=== PATIENT | male | born 2000 | race Caucasian/White ===

== ENCOUNTER 2019-04-02 11:52 | Inpatient (IN) | payer BC ==
[~2019-04-02] VITALS: Ht 170.2 cm; Wt 69.8 kg
[2019-04-02] MEDS ORDERED: ZOLO50TA PO (11:58)
[2019-04-02] MEDS ORDERED: HYDR-3713 PO (11:58)
[2019-04-02 12:26] LABS: BASO % 0.1 % (0.0-1.0); EOS % 0.5 % (0.0-3.0); HEMATOCRIT 49.4 % (42.0-52.0); LYMPH # 0.9 10^3/uL (1.5-5.0); LYMPH % 10.2 % (24.0-44.0); MEAN CORPUSCULAR HEMOGLOBIN 30.1 pg (27.0-33.0); MEAN CORPUSCULAR HGB CONC 34.4 g/dl (32.0-36.5); MEAN CORPUSCULAR VOLUME 87.4 fl (80.0-96.0); MONO # 0.4 10^3/uL (0.0-0.8); MONO % 4.9 % (0.0-5.0); NEUTROPHILS # 7.4 10^3/uL (1.5-8.5); NEUTROPHILS % 84.1 % (36.0-66.0); PLATELET COUNT, AUTOMATED 209 10^3/uL (150-450); RED BLOOD COUNT 5.65 10^6/uL (4.30-6.10); WHITE BLOOD COUNT 8.7 10^3/uL (4.0-10.0)
[2019-04-02 13:00] LABS: ALBUMIN 4.4 GM/DL (3.2-5.2); ALT/SGPT 19 U/L (12-78); BILIRUBIN,DIRECT 0.4 MG/DL (0.0-0.2); BILIRUBIN,TOTAL 1.9 MG/DL (0.2-1.0); BLOOD UREA NITROGEN 6 MG/DL (7-18); CALCIUM LEVEL 9.2 MG/DL (8.5-10.1); CARBON DIOXIDE LEVEL 28 MEQ/L (21-32); CHLORIDE LEVEL 101 MEQ/L (98-107); CREATININE FOR GFR 0.88 MG/DL (0.70-1.30); GLUCOSE, FASTING 92 MG/DL (70-100); LIPASE 12824 U/L (73-393); POTASSIUM SERUM 3.7 MEQ/L (3.5-5.1); SODIUM LEVEL 138 MEQ/L (136-145); TOTAL PROTEIN 7.5 GM/DL (6.4-8.2)
[2019-04-02] MEDS ORDERED: HYDROMORPHONE HCL 0.5 MG/ 0.5 ML SYRINGE (J1170 PER 1) IV ONE ×2 (13:30→15:00)
[2019-04-02] MEDS ORDERED: ONDANSETRON 4MG/2ML VIAL (J2405) IV ONE (13:30)
[2019-04-02] MEDS ORDERED: NS 1,000 ML IV ONE ×2 (13:30→14:45)
[2019-04-02] MEDS ORDERED: ISOVUE-370 76% 100ML VIAL (Q9967) As Ordered ONE (13:48)
--- NOTE | 2019-04-02 14:18 | REP ---
Clinical: Abdominal pain. Pancreatitis. Technique: Axial contrast enhanced images from the lung bases to the pubic symphysis with coronal and sagittal re-formations using 100 ml Isovue 370 intravenous contrast material. Findings: The pancreas is edematous with surrounding peripancreatic inflammatory changes and moderate amount of ascites extending into the pelvis. No evidence for pancreatic necrosis or ischemia. No discrete drainable collection or abscess. Liver, spleen, gallbladder, bilateral adrenal glands and kidneys are normal. The enteric system is without obstruction or acute inflammatory process. Pelvis demonstrates normal bladder and age appropriate prostate/seminal vesicles. No free air. No significant adenopathy. Impression: Acute pancreatitis. Electronically Signed by Priyank Underwood MD 04/02/2019 02:09 P
[2019-04-02 15:00] LABS: AMYLASE 1100 U/L (25-115)
[2019-04-02] MEDS ORDERED: ONDANSETRON 4MG/2ML VIAL (J2405) IV PRN (15:45)
--- NOTE | 2019-04-02 16:15 | HPEPDOC ---
General Date of Admission Apr 02, 2019 at 15:09 Date of Service: Apr 02, 2019 Attending Physician: GERALDO DOMÍNGUEZ MD Chief Complaint The patient is a 18-year-old male admitted with a reason for visit of Acute Pancreatitis. Source: Patient, Family Exam Limitations: No limitations Associated Symptoms: Loss of appetite, Nausea History of Present Illness Mr Mac is a 18 year old male who presented to the ED for abdominal pain and pancreatitis. The patient was seen laying in bed with his father present. Mr. Mac has a history of anxiety for which he started Zoloft ~ 6 months ago and a history of pancreatitis with the first bout occurring 2-3 months prior. Mr. Mac denied any current prescribed or OTC medications. He currently drinks '1 or 2' beers at night after work and on Friday, he reported partying for his friends birthday. He stated the amount he drank, 'really wasn't that much.' Mr. Mac stated that he travels for work; he was in [place] at the [facility] 2 days prior due to an attack of pancreatitis. He was given Dilaudid IV which helped and released with Remlap PO. He reported he believes the Remlap worsened his pain. He has been 'drinking soups' for the past 2 days and denied having any alcohol since Friday. He reported the pain is terrible, substernal, 15/10 at its worst and has been pretty constant over 2 days. Patient denied vomiting, but he has felt nauseous since his latest bout. Dilaudid IV given in the ED has provided adequate pain relief. Home Medications Scheduled Sertraline Hcl (Zoloft) 50 Mg Tablet, 50 MG PO DAILY, (Reported) NOON Scheduled PRN Hydrocodone/Acetaminophen (Hydrocodone-Acetamin 5-325 mg) 1 Each Tablet, 1 TAB PO Q6H PRN for pain, (Reported) Allergies Coded Allergies: amoxicillin (Verified Allergy, Unknown, 04/02/19) anaphylaxis clavulanic acid (Verified Allergy, Unknown, 04/02/19) anaphylaxis Social History * Smoker: Denies Alcohol: other (1-2 beers after work ) Drugs: denies Recent Travel/Sick Contacts: Reports: Recent travel, Recent sick contacts Psychosocial History: No pertinent psych hx A-FIB/CHADSVASC A-FIB History Current/History of A-Fib/PAF?: No Review of Systems Eyes: Denies: Pain, Vision change ENT: Denies: Head Aches, Dysphagia Skin: Denies: Rash, Lesions Pulmonary: Denies: Dyspnea, Cough Cardiovascular: Denies: Chest Pain, Palpitations, Lt Headedness Gastrointestinal: Reports: Nausea, Abdominal Pain; Denies: Vomiting, Diarrhea, Constipation Genitourinary: Denies: Dysuria Hematologic: Denies: Bruising Musculoskeletal: Denies: Neck Pain, Back Pain, Shoulder Pain, Arm Pain, Hand Pain, Leg Pain, Foot Pain, Joint Pain, Muscle Pain, Spasms, Other Symptoms Psych: Reports: Mood Normal Physical Examination General Exam: Positive: Alert, Cooperative, No Acute Distress Eye Exam: Positive: Conjunctiva & lids normal ENT Exam: Positive: Atraumatic, Mucous membr. moist/pink Neck Exam: Positive: Supple Chest Exam: Positive: Clear to auscultation, Normal air movement Heart Exam: Positive: Rate Normal, Normal S1, Normal S2; Negative: Murmurs, Rubs Abdomen Exam: Positive: Normal bowel sounds, Soft, Tenderness (Depp palpation produces pressure, does not reproduce the pain); Negative: Hepatospenomegaly, Mass Extremity Exam: Negative: Clubbing, Cyanosis, Edema Skin Exam: Positive: Nl turgor and temperature Neuro Exam: Positive: Normal Speech Psych Exam: Positive: Mood NL Vital Signs Vital Signs Date Time Temp Pulse Resp B/P (MAP) Pulse Ox O2 Delivery O2 Flow Rate FiO2 04/02/19 15:38 18 Room Air 04/02/19 12:05 Automatic Cuff (NIBP) Left Arm 04/02/19 11:53 97.5 54 96 Laboratory Data Labs 24H Laboratory Tests 2 04/02/19 12:00: Immature Granulocyte % (Auto) 0.2, Neutrophils (%) (Auto) 84.1H, Lymphocytes (%) (Auto) 10.2L, Monocytes (%) (Auto) 4.9, Eosinophils (%) (Auto) 0.5, Basophils (%) (Auto) 0.1, Neutrophils # (Auto) 7.4, Lymphocytes # (Auto) 0.9L, Monocytes # (Auto) 0.4, Eosinophils # (Auto) 0.0, Basophils # (Auto) 0.0, Nucleated Red Blood Cells % (auto) 0.0, Anion Gap 9, Calcium Level 9.2, Total Bilirubin 1.9H, Direct Bilirubin 0.4H, Aspartate Amino Transf (AST/SGOT) 14, Alanine Aminotransferase (ALT/SGPT) 19, Alkaline Phosphatase 83, Total Protein 7.5, Albumin 4.4, Albumin/Globulin Ratio 1.42, Amylase Level 1100H, Lipase 35247I 04/02/19 12:21: Urine Color YELLOW, Urine Appearance CLEAR, Urine pH 7.0, Urine Specific [place] 1.009, Urine Protein NEGATIVE, Urine Glucose (UA) NEGATIVE, Urine Ketones 1+H, Urine Blood NEGATIVE, Urine Nitrite NEGATIVE, Urine Bilirubin NEGATIVE, Urine Urobilinogen 0.2, Urine Leukocyte Esterase NEGATIVE, Urine WBC (Auto) 0, Urine RBC (Auto) 0, Urine Hyaline Casts (Auto) 0, Urine Bacteria (Auto) NEGATIVE, Urine Squamous Epithelial Cells 0, Urine Mucus (Auto) SMALL, Urine Sperm (Auto) CBC/BMP Laboratory Tests 04/02/19 12:00 Assessment/Plan 18 year old male presented to the ED for abdominal pain for 1 day adn found to have elevated amylase and lipase. Patient had a CT of the abdomen which showed acute pancreatitis without necrosis Acute pancreatitis second episode this year. Patient will be admitted due to acute pancreatitis with significant pain and elevated Lipase. NPO, Dialudid 0.5mg IV q3hp (mild pain) and 0.8mg q3hp (severe pain) for pain relief, Ondonsetron 4mg IV q6hp prn, and Pantoprazole 40mg IV q24hr. aggressive hydration. Repeat CMP qam daily to monitor resolution of the current pancreatitis. History of significant alcohol use counselled about stopping drinking. Patient will be admitted to the hospital and expect greater than 48 hours inpatient stay. Plan / VTE VTE Prophylaxis Ordered?: Yes YULY RIVERA PA-C Apr 02, 2019 16:15 GERALDO DOMÍNGUEZ MD Apr 02, 2019 17:21
[2019-04-02] MEDS: LR 1,000 ML IV SCH ×2 (16:26→22:38)
[2019-04-02 16:36] VITALS: BP 146/72
[2019-04-02] MEDS: PANTOPRAZOLE 40MG INJ (PROTONIX) (C9113) IV SCH (17:16)
[2019-04-02] MEDS: HYDROMORPHONE HCL 0.5 MG/ 0.5 ML SYRINGE (J1170 PER 1) IV PRN (21:37)
[2019-04-02 22:00] VITALS: BP 139/69
[2019-04-03] MEDS: HYDROMORPHONE HCL 0.5 MG/ 0.5 ML SYRINGE (J1170 PER 1) IV PRN ×4 (03:32→20:09)
[2019-04-03] MEDS: LR 1,000 ML IV SCH ×3 (05:25→20:08)
[2019-04-03 05:54] LABS: BASO % 0.1 % (0.0-1.0); EOS # 0.1 10^3/uL (0.0-0.5); EOS % 1.3 % (0.0-3.0); HEMATOCRIT 43.8 % (42.0-52.0); LYMPH # 1.3 10^3/uL (1.5-5.0); LYMPH % 15.4 % (24.0-44.0); MEAN CORPUSCULAR HEMOGLOBIN 29.9 pg (27.0-33.0); MEAN CORPUSCULAR HGB CONC 33.6 g/dl (32.0-36.5); MEAN CORPUSCULAR VOLUME 89.2 fl (80.0-96.0); MONO # 0.5 10^3/uL (0.0-0.8); MONO % 6.2 % (0.0-5.0); NEUTROPHILS # 6.5 10^3/uL (1.5-8.5); NEUTROPHILS % 76.6 % (36.0-66.0); PLATELET COUNT, AUTOMATED 193 10^3/uL (150-450); RED BLOOD COUNT 4.91 10^6/uL (4.30-6.10); WHITE BLOOD COUNT 8.4 10^3/uL (4.0-10.0)
[2019-04-03 05:55] LABS: HEMOGLOBIN 14.7 g/dl (13.5-17.5)
[2019-04-03 06:00] VITALS: BP 125/61
[2019-04-03 06:16] LABS: AMYLASE 653 U/L (25-115); BLOOD UREA NITROGEN 6 MG/DL (7-18); CALCIUM LEVEL 8.3 MG/DL (8.5-10.1); CARBON DIOXIDE LEVEL 28 MEQ/L (21-32); CHLORIDE LEVEL 103 MEQ/L (98-107); CREATININE FOR GFR 0.72 MG/DL (0.70-1.30); GLUCOSE, FASTING 73 MG/DL (70-100); LIPASE 4433 U/L (73-393); POTASSIUM SERUM 3.9 MEQ/L (3.5-5.1); SODIUM LEVEL 139 MEQ/L (136-145)
--- NOTE | 2019-04-03 13:08 | IPNPDOC ---
Subjective Date Seen The patient was seen on 04/03/19. Subjective Chief Complaint/HPI Says sia abdominal pain is still bad but no nausea or vomiting. Says he is starting to feel hungry . No fever or chills, no chest pain or sob . No bowel movement but did pass some flatus. Objective Physical Examination General Exam: Positive: Alert, Cooperative, No Acute Distress Eye Exam: Positive: Conjunctiva & lids normal ENT Exam: Positive: Atraumatic, Mucous membr. moist/pink Neck Exam: Positive: Supple Chest Exam: Positive: Clear to auscultation, Normal air movement Heart Exam: Positive: Rate Normal, Normal S1, Normal S2; Negative: Murmurs, Rubs Abdomen Exam: Positive: Normal bowel sounds, Soft, Tenderness (diffuse in the epigastrium and periumbilical on deep palpation. ); Negative: Hepatospenomegaly, Mass Extremity Exam: Negative: Clubbing, Cyanosis, Edema Skin Exam: Positive: Nl turgor and temperature Neuro Exam: Positive: Normal Speech Psych Exam: Positive: Mood NL Assessment /Plan Assessment 18 year old male presented to the ED for abdominal pain for 1 day and found to have elevated amylase and lipase. Patient had a CT of the abdomen which showed acute pancreatitis without necrosis Acute pancreatitis second episode this year. Patient will be admitted due to acute pancreatitis with significant pain and elevated Lipase. will start clear liquids. Dialudid 0.5mg IV q3hp (mild pain) and 0.8mg q3hp (severe pain) for pain relief, Ondonsetron 4mg IV q6hp prn, and Pantoprazole 40mg IV q24hr. aggressive hydration. Repeat CMP qam daily to monitor resolution of the current pancreatitis. lipase improving. History of significant alcohol use counselled about stopping drinking. VS, I&O, 24H, Fishbone Vital Signs/I&O Vital Signs Date Time Temp Pulse Resp B/P (MAP) Pulse Ox O2 Delivery O2 Flow Rate FiO2 04/03/19 10:14 18 04/03/19 06:00 98.7 66 125/61 (82) 97 Room Air I&O- Last 24 Hours up to 6 AM 04/03/19 06:00 Intake Total 4280 ml Output Total 300 ml Balance 3980 ml Laboratory Data 24H LABS Laboratory Tests 2 04/03/19 05:35: Immature Granulocyte % (Auto) 0.4, Neutrophils (%) (Auto) 76.6H, Lymphocytes (%) (Auto) 15.4L, Monocytes (%) (Auto) 6.2H, Eosinophils (%) (Auto) 1.3, Basophils (%) (Auto) 0.1, Neutrophils # (Auto) 6.5, Lymphocytes # (Auto) 1.3L, Monocytes # (Auto) 0.5, Eosinophils # (Auto) 0.1, Basophils # (Auto) 0.0, Nucleated Red Blood Cells % (auto) 0.0, Anion Gap 8, Calcium Level 8.3L, Amylase Level 653H, Lipase 4433H CBC/BMP Laboratory Tests 04/03/19 05:35 GERALDO DOMÍNGUEZ MD Apr 03, 2019 13:07
[2019-04-03 18:00] VITALS: BP 127/63
[2019-04-03] MEDS: PANTOPRAZOLE 40MG INJ (PROTONIX) (C9113) IV SCH (18:20)
[2019-04-03 22:00] VITALS: BP 127/64
[2019-04-04] MEDS: LR 1,000 ML IV SCH ×3 (02:52→16:09)
[2019-04-04] MEDS: HYDROMORPHONE HCL 0.5 MG/ 0.5 ML SYRINGE (J1170 PER 1) IV PRN (02:52)
[2019-04-04 06:00] VITALS: BP 124/61
[2019-04-04 06:31] LABS: BASO % 0.3 % (0.0-1.0); EOS # 0.2 10^3/uL (0.0-0.5); HEMATOCRIT 43.8 % (42.0-52.0); HEMOGLOBIN 14.4 g/dl (13.5-17.5); LYMPH # 1.3 10^3/uL (1.5-5.0); MEAN CORPUSCULAR HEMOGLOBIN 29.5 pg (27.0-33.0); MEAN CORPUSCULAR HGB CONC 32.9 g/dl (32.0-36.5); MEAN CORPUSCULAR VOLUME 89.8 fl (80.0-96.0); MONO # 0.5 10^3/uL (0.0-0.8); MONO % 8.7 % (0.0-5.0); NEUTROPHILS # 3.9 10^3/uL (1.5-8.5); NEUTROPHILS % 64.7 % (36.0-66.0); PLATELET COUNT, AUTOMATED 194 10^3/uL (150-450); RED BLOOD COUNT 4.88 10^6/uL (4.30-6.10)
[2019-04-04 06:51] LABS: BLOOD UREA NITROGEN 4 MG/DL (7-18); CARBON DIOXIDE LEVEL 32 MEQ/L (21-32); CHLORIDE LEVEL 101 MEQ/L (98-107); CREATININE FOR GFR 0.84 MG/DL (0.70-1.30); GLUCOSE, FASTING 87 MG/DL (70-100); POTASSIUM SERUM 3.6 MEQ/L (3.5-5.1); SODIUM LEVEL 139 MEQ/L (136-145)
[2019-04-04 08:24] LABS: AMYLASE 245 U/L (25-115); LIPASE 1461 U/L (73-393)
[2019-04-04] MEDS ORDERED: NORCO, ANEXSIA 5/325MG TABLET (HYDROcodone/ACETAMINOPHEN) PO PRN ×2 (11:00)
--- NOTE | 2019-04-04 11:01 | IPNPDOC ---
Subjective Date Seen The patient was seen on 04/04/19. Subjective Chief Complaint/HPI Still not hungry, Had asmall bowel movement yesterday. says passing flatus. No fever or chills. Abdominal pain slightly bettr still need a dilaudid at 3 am. Objective Physical Examination General Exam: Positive: Alert, Cooperative, No Acute Distress Eye Exam: Positive: Conjunctiva & lids normal ENT Exam: Positive: Atraumatic, Mucous membr. moist/pink Neck Exam: Positive: Supple Chest Exam: Positive: Clear to auscultation, Normal air movement Heart Exam: Positive: Rate Normal, Normal S1, Normal S2; Negative: Murmurs, Rubs Abdomen Exam: Positive: Normal bowel sounds, Soft, Tenderness (diffuse in the epigastrium and periumbilical on deep palpation. ); Negative: Hepatospenomegaly, Mass Extremity Exam: Negative: Clubbing, Cyanosis, Edema Skin Exam: Positive: Nl turgor and temperature Neuro Exam: Positive: Normal Speech Psych Exam: Positive: Mood NL Assessment /Plan Assessment 18 year old male presented to the ED for abdominal pain for 1 day and found to have elevated amylase and lipase. Patient had a CT of the abdomen which showed acute pancreatitis without necrosis Acute pancreatitis recurrent , second episode. improving slowly. advance diet to full liquids. decrease IVF will start on PO pain meds and cut down on IV dilaudid. History of significant alcohol use counselled about stopping drinking. VS, I&O, 24H, Fishbone Vital Signs/I&O Vital Signs Date Time Temp Pulse Resp B/P (MAP) Pulse Ox O2 Delivery O2 Flow Rate FiO2 04/04/19 06:00 98.4 90 17 124/61 (82) 100 Room Air I&O- Last 24 Hours up to 6 AM 04/04/19 06:00 Intake Total 4455 ml Output Total 600 ml Balance 3855 ml Laboratory Data 24H LABS Laboratory Tests 2 04/04/19 06:15: Immature Granulocyte % (Auto) 0.3, Neutrophils (%) (Auto) 64.7, Lymphocytes (%) (Auto) 22.0L, Monocytes (%) (Auto) 8.7H, Eosinophils (%) (Auto) 4.0H, Basophils (%) (Auto) 0.3, Neutrophils # (Auto) 3.9, Lymphocytes # (Auto) 1.3L, Monocytes # (Auto) 0.5, Eosinophils # (Auto) 0.2, Basophils # (Auto) 0.0, Nucleated Red Blood Cells % (auto) 0.0, Anion Gap 6L, Calcium Level 9.0, Amylase Level 245H, Lipase 1461H CBC/BMP Laboratory Tests 04/04/19 06:15 GERALDO DOMÍNGUEZ MD Apr 04, 2019 11:01
[2019-04-04 14:00] VITALS: BP 107/54
[2019-04-04] MEDS: PANTOPRAZOLE 40MG INJ (PROTONIX) (C9113) IV SCH (20:49)
[2019-04-04 22:00] VITALS: BP 111/56
[2019-04-05 06:00] VITALS: BP 125/61
[2019-04-05] MEDS: LR 1,000 ML IV SCH ×2 (06:13→12:09)
[2019-04-05 06:25] LABS: BASO % 0.6 % (0.0-1.0); EOS # 0.3 10^3/uL (0.0-0.5); EOS % 6.7 % (0.0-3.0); HEMATOCRIT 42.9 % (42.0-52.0); HEMOGLOBIN 14.3 g/dl (13.5-17.5); LYMPH # 1.6 10^3/uL (1.5-5.0); LYMPH % 32.1 % (24.0-44.0); MEAN CORPUSCULAR HEMOGLOBIN 29.8 pg (27.0-33.0); MEAN CORPUSCULAR HGB CONC 33.3 g/dl (32.0-36.5); MEAN CORPUSCULAR VOLUME 89.4 fl (80.0-96.0); MONO # 0.5 10^3/uL (0.0-0.8); MONO % 9.3 % (0.0-5.0); NEUTROPHILS # 2.5 10^3/uL (1.5-8.5); NEUTROPHILS % 51.1 % (36.0-66.0); PLATELET COUNT, AUTOMATED 203 10^3/uL (150-450)
[2019-04-05 06:49] LABS: BLOOD UREA NITROGEN 3 MG/DL (7-18); CALCIUM LEVEL 9.3 MG/DL (8.5-10.1); CARBON DIOXIDE LEVEL 33 MEQ/L (21-32); CHLORIDE LEVEL 104 MEQ/L (98-107); CREATININE FOR GFR 0.83 MG/DL (0.70-1.30); GLUCOSE, FASTING 99 MG/DL (70-100); LIPASE 1707 U/L (73-393); POTASSIUM SERUM 3.8 MEQ/L (3.5-5.1); SODIUM LEVEL 140 MEQ/L (136-145)
[2019-04-05] MEDS ORDERED: PANT40TA3 PO (09:53)
--- NOTE | 2019-04-05 11:24 | DS.PDOC ---
Discharge Summary General Date of Admission Apr 02, 2019 at 15:09 Date of Discharge 04/05/19 Discharge Summary PROCEDURES PERFORMED DURING STAY: [None]. DISCHARGE DIAGNOSES: Acute Pancreatitis COMPLICATIONS/CHIEF COMPLAINT: Acute Pancreatitis. HISTORY OF PRESENT ILLNESS: See history and physical HOSPITAL COURSE: 18 year old male presented to the ED for abdominal pain for 1 day and found to have elevated amylase and lipase. Patient had a CT of the abdomen which showed acute pancreatitis without necrosis Acute pancreatitis recurrent , second episode. improving, Pain control diet advanced to low fat and low cholesterol. History of significant alcohol use counselled about stopping drinking. DISCHARGE MEDICATIONS: Please see below. ALLERGIES: Please see below. PHYSICAL EXAMINATION ON DISCHARGE: VITAL SIGNS: Please see below. General Exam: Positive: Alert, Cooperative, No Acute Distress Eye Exam: Positive: Conjunctiva & lids normal ENT Exam: Positive: Atraumatic, Mucous membr. moist/pink Neck Exam: Positive: Supple Chest Exam: Positive: Clear to auscultation, Normal air movement Heart Exam: Positive: Rate Normal, Normal S1, Normal S2; Negative: Murmurs, Rubs Abdomen Exam: Positive: Normal bowel sounds, Soft, Tenderness (diffuse in the epigastrium and periumbilical on deep palpation. ); Negative: Hepatospenomegaly, Mass Extremity Exam: Negative: Clubbing, Cyanosis, Edema Skin Exam: Positive: Nl turgor and temperature Neuro Exam: Positive: Normal Speech Psych Exam: Positive: Mood NL LABORATORY DATA: Please see below. ACTIVITY: [As tolerated]. DIET: Low fat , low cholesterol DISCHARGE PLAN: Home DISPOSITION: Home DISCHARGE INSTRUCTIONS: PMD in [address] Díaz in 4 to 6 weeks. DISCHARGE CONDITION: [Stable]. TIME SPENT ON DISCHARGE: 35 minutes. Vital Signs/I&Os Vital Signs Date Time Temp Pulse Resp B/P (MAP) Pulse Ox O2 Delivery O2 Flow Rate FiO2 04/05/19 06:00 98.3 47 16 125/61 (82) 99 04/04/19 22:00 Room Air I&O- Last 24 Hours up to 6 AM 04/05/19 06:00 Intake Total 4635 ml Balance 4635 ml Laboratory Data Labs 24H Laboratory Tests 2 04/05/19 05:33: Immature Granulocyte % (Auto) 0.2, Neutrophils (%) (Auto) 51.1, Lymphocytes (%) (Auto) 32.1, Monocytes (%) (Auto) 9.3H, Eosinophils (%) (Auto) 6.7H, Basophils (%) (Auto) 0.6, Neutrophils # (Auto) 2.5, Lymphocytes # (Auto) 1.6, Monocytes # (Auto) 0.5, Eosinophils # (Auto) 0.3, Basophils # (Auto) 0.0, Nucleated Red Blood Cells % (auto) 0.0, Anion Gap 3L, Calcium Level 9.3, Lipase 1707H CBC/BMP Laboratory Tests 04/05/19 05:33 Discharge Medications Scheduled Pantoprazole Sodium (Pantoprazole Sodium) 40 Mg Tablet.dr, 1 TAB PO DAILY Scheduled PRN Hydrocodone/Acetaminophen (Hydrocodone-Acetamin 5-325 mg) 1 Each Tablet, 1 TAB PO Q6H PRN for pain, (Reported) Allergies Coded Allergies: amoxicillin (Verified Allergy, Unknown, 04/02/19) anaphylaxis clavulanic acid (Verified Allergy, Unknown, 04/02/19) anaphylaxis GERALDO DOMÍNGUEZ MD Apr 05, 2019 11:24
== END 2019-04-05 14:23 | disposition home or self-care (01) | DRG 282 ==
LOC: M ED 11:52 → M ED INP 15:09 → M MSPAV 16:07
PROVIDERS: ADMIT Internal Medicine Nephrology; ATTEND Internal Medicine Nephrology
DX: K85.90 Acute pancreatitis without necrosis or infection, unspecified (principal); F41.9 Anxiety disorder, unspecified; Z79.899 Other long term (current) drug therapy; Z88.0 Allergy status to penicillin; Z88.8 Allergy status to other drugs, medicaments and biological substances